=== PATIENT | male | born 1985 | race Caucasian/White ===

== ENCOUNTER 2021-04-19 15:26 | Emergency (ER) | payer OTHER ==
[2021-04-19 17:12] LABS: ECSTASY (MDMA) NEGATIVE (NEGATIVE); MARIJUANA (THC) POSITIVE (NEGATIVE); METHADONE NEGATIVE (NEGATIVE); OPIATES NEGATIVE (NEGATIVE)
[2021-04-19 17:13] LABS: AMPHETAMINES NEGATIVE (NEGATIVE); BARBITURATES NEGATIVE (NEGATIVE); OXYCODONE NEGATIVE (NEGATIVE)
[2021-04-20 09:48] LABS: BASOPHIL 0.5 % (0-2); EOSINOPHIL 6.5 % (0-5); HCT 46.8 % (42.0-52.0); HGB 15.9 g/dl (13.2-18.0); LYMPHOCYTE 42.3 % (15-48); MCH 30.9 pg (25.0-31.0); MCV 90.9 fL (78.0-100.0); MONOCYTE 12.4 % (0-12); MPV 9.5 fL (6.0-9.5); NEUTROPHIL 38.1 % (41-80); NRBC 0; PLT 316 K/uL (150-400); RBC 5.15 M/uL (4.70-6.00); RDW 13.3 % (11.5-14.0); WBC 6.5 K/uL (4.0-10.5)
[2021-04-20 10:04] LABS: ALBUMIN 3.6 g/dL (3.4-5.0); BILIRUBIN - TOTAL 0.3 mg/dL (0.2-1.0); BUN/CREAT RATIO (CALC) 15.1 RATIO; CREATININE 0.73 mg/dL (0.67-1.17); GLOBULIN (CALCULATION) 3.7 g/dL; POTASSIUM 4.5 mmol/L (3.5-5.1); TOTAL PROTEIN 7.3 g/dL (6.4-8.2)
== END 2021-04-20 14:50 | disposition other institution (70) ==
LOC: FER 15:26
PROVIDERS: Emergency Medicine; Physician Assistant
DX: R45.851 Suicidal ideations (principal); F17.200 Nicotine dependence, unspecified, uncomplicated; U07.1 COVID-19
CPT/HCPCS: 36415; 80053; 80305; 85025; 99285; U0002